=== PATIENT | female | born 1985 | race Caucasian/White ===

== ENCOUNTER 2021-06-20 21:10 | Emergency (ER) | payer BC ==
[2021-06-20] MEDS ORDERED: Enoxaparin 40 MG/0.4 ML Syringe SUBCUT ONE (23:12)
--- NOTE | 2021-06-20 23:19 | EDM.PDOC ---
ED HPI GENERAL MEDICAL PROBLEM - General Chief Complaint: Lower Extremity Injury/Pain Stated Complaint: LT LEG PAIN/ POSS BLOOD CLOT Time Seen by Provider: 06/20/21 21:25 Source of Information: Reports: Patient, Provider (Dr. Bahena) History Limitations: Reports: No Limitations - History of Present Illness INITIAL COMMENTS - FREE TEXT/NARRATIVE: Ms. White is a pleasant 36-year-old woman who now presents the ED with left calf pain. She states that she suffered a comminuted proximal left tibia fracture on 06/12/2021, when she was kicked by a horse. She saw an Orthop edic Surgeon this past 06/17/2021. She states that x-rays and a CT were performed, and she was then fitted with a brace. Surgery was offered, but declined. She states that she then developed pain in her left calf whenever her leg is dependent, on , 06/18/2021. She states that she does not have any pain to her leg at all if it is elevated. She states that she was seen at the alk-in clinic on 06/19/2021, where a Doppler ultrasound of the left lower extremity was performed, finding no evidence of a DVT. She was prescribed Glencoe and Flexeril, however, she states that the provider contacted her Orthopedic Surgeon, and that he told them that he would prescribe an anticoagulant, and make the arrangements himself. The patient now presents the ED stating that the Glencoe and Flexeril are inadequate to treat her pain when her leg is dependent, and that no prescription for an anticoagulant has been submitted. Here in the ED tonight, the patient is found to be hemodynamically stable, afebrile, saturating 97% on room air. She has a left leg brace on, which she states is not the one given to her by her Orthopedic Surgeon- she states that that brace was too uncomfortable. Prior to 06/12/2021, the patient denies having a recent fever, chills, sore throat, ear pain, nasal or sinus congestion, cough, dyspnea, chest pain, palpitations, nausea, vomiting, constipation, diarrhea, abdominal pain, urinary symptoms, recent weight gain or weight loss, recent bloody bowel movements or black bowel movements, recent joint aches, headaches, or rashes. The patient's PCP is Dr. Nica Sheehan. Her Orthopedic Surgeon is Dr. Oniel Bahena. Her Him Specialist is Dr. Bisi Melgar. She has not received a COVID vaccination. Left Lower Leg Pain Score (Numeric/FACES): 10 - Related Data Allergies Allergy/AdvReac Type Severity Reaction Status Date / Time No Known Allergies Allergy Verified 06/20/21 21:31 Home Meds: Home Meds Cyclobenzaprine [Flexeril] 10 mg PO BEDTIME 06/20/21 [History] Enoxaparin Sodium [Lovenox] 1 injection SQ QPM #7 ml 06/20/21 [Rx] Hydrocodone/Acetaminophen [HYDROcodone-Acetaminophen 5-325 MG] 1 each PO Q12H PRN 06/20/21 [History] LORazepam [Ativan] 0.5 mg PO ASDIRECTED PRN 06/20/21 [History] norethindrone ac-eth estradioL [Naun 1.5 mg-30 Mcg Tablet] 1 tab PO DAILY 06/20/21 [History] Past Medical History Musculoskeletal History: Reports: Fracture (left tibia) Social & Family History - Tobacco Use Tobacco Use Status *Q: Never Tobacco User - Alcohol Use Alcohol Use History: Yes Alcohol Use Frequency: Socially - Recreational Drug Use Recreational Drug Use: No - Living Situation & Occupation Living situation: Reports: Single, with Significant Other (Boyfriend) Occupation: Employed ([employer]) Review of Systems - Review of Systems Review Of Systems: Comprehensive ROS is negative, except as noted in HPI. ED EXAM, GENERAL - Physical Exam Exam: See Below Exam Limited By: No Limitations General Appearance: Alert, WD/WN, No Apparent Distress Extremities: Other (There is a diagonal scab across the anterior left leg, otherwise, no visible abnormality to the left leg, such as swelling, erythema, ecchymosis, or abrasion. Neurovascular status of the left lower extremity is intact.) Course - Vital Signs Last Recorded V/S: Last Vital Signs Temp 36.3 C 06/20/21 21:27 Pulse 68 06/20/21 23:57 Resp 16 06/20/21 23:57 BP 102/66 06/20/21 23:57 Pulse Ox 97 06/20/21 23:57 - Orders/Labs/Meds Meds: Medications Discontinued Medications Generic Name Dose Route Start Last Admin Trade Name Freq PRN Reason Stop Dose Admin Enoxaparin Sodium 40 mg 06/20/21 23:12 06/20/21 23:31 Enoxaparin 40 Mg/0.4 Ml Syringe SUBCUT 06/20/21 23:13 40 mg ONETIME ONE Administration - Re-Assessments/Exams Free Text/Narrative Re-Assessment/Exam: 06/20/21 23:13 As above, the patient suffered a proximal left tibia fracture last Tuesday, when she was kicked by a horse. She saw Dr. Bahena this past Tuesday. X-rays and a CT were performed. She was placed into a brace, but declined surgery. She then developed calf pain whenever her left leg is dependent, on . She was seen at the walk-in clinic yesterday, where a Doppler ultrasound of the lower extremity was negative for a DVT. She was prescribed Glencoe and Flexeril. She states that she does not have any pain if she elevates her left lower extremity, but experiences calf pain if her leg is dependent. She also states that the walk-in clinic provider spoke with Dr. Bahena, and that he told them that he was going to prescribe an anticoagulant, but that no prescription has yet been submitted. I suspect that the patient's left calf pain is due to extravasation of blood from the fracture into her calf, with venous congestion whenever her leg is dependent. Case discussed with Dr. Bahena. He recommended that I start the patient on Lovenox 40 mg SQ daily. I will start her on that here in the ED. He was also okay with the patient RICKY wrapping her left lower extremity from the foot upward, to above the knee, to help with venous congestion. The brace can be fitted over the RICKY wrapping. I am to remind the patient to not bear weight on the left lower extremity, however, she may touch toe to help hold the leg up. 06/20/21 23:19 The above was discussed with the patient. She stated that she is comfortable giving herself an injection. I will have Sol HODGSON demonstrate to her how it should be done. I will submit a prescription for a 7-day course, and have her follow-up with Dr. Bahena later this week. I recommended that she elevate her left lower extremity as much as possible, to help promote drainage of the blood in her leg. Departure - Departure Time of Disposition: 23:23 Disposition: Home, Self-Care 01 Condition: Good Clinical Impression: Left tibial fracture - Discharge Information *PRESCRIPTION DRUG MONITORING PROGRAM REVIEWED*: Not Applicable *COPY OF PRESCRIPTION DRUG MONITORING REPORT IN PATIENT JOSE: Not Applicable Prescriptions: Enoxaparin Sodium [Lovenox] 1 injection SQ QPM #7 ml Instructions: Tibial Fracture, Adult, [id number] Referrals: Aguila-Nica Reaves MD [Primary Care Provider] - Oniel Bahena MD [Physician] - Bisi Melgar MD [Physician] - Forms: ED Department Discharge Additional Instructions: You were seen in the emergency room for continued pain in your left calf whenever your left leg is dependent, in the setting of a proximal tibia fracture. Your case was discussed with the Orthopedic Surgeon Dr. Oniel Bahena, who recommended that you be started on the anticoagulant Lovenox. A prescription for Lovenox has been submitted to the [facility], located just south and across [address] from [facility]. Give yourself a single injection of Lovenox 40 mg subcutaneously every evening, starting tomorrow evening, 06/21/2021, as prescribed. You may RICKY wrap your left leg, starting at the toes, and wrapping upward to just above the knee. We recommend that you apply the wrap every morning, and remove it at bedtime. The wrap would go under your leg brace. We recommend that you follow-up with Dr. Bahena this week. If any other problems, please do not hesitate to return to the ER. Sepsis Event Note (ED) - Evaluation Sepsis Screening Result: No Definite Risk - Focused Exam Vital Signs: Vital Signs Temp Pulse Resp BP Pulse Ox 06/20/21 23:57 68 16 102/66 97 06/20/21 21:27 36.3 C 84 17 114/72 97
== END 2021-06-20 23:45 | disposition home or self-care (01) ==
LOC: JD.ED 21:10
DX: S82.192A Other fracture of upper end of left tibia, initial encounter for closed fracture (principal); W55.12XA Struck by horse, initial encounter
CPT/HCPCS: 96372; 99283; J1650